=== PATIENT | male | born 1965 | race Caucasian/White ===

== ENCOUNTER → 2024-08-30 08:32 | Outpatient (REF) | payer BC, SELFPAY | LOC: PAVMRI 08:32 | PROVIDERS: ATTENDING PHYSICIAN Internal Medicine Cardiovascular Disease; FAMILY PHYSICIAN Internal Medicine | DX: I42.9 Cardiomyopathy, unspecified (principal) | CPT/HCPCS: 75561; 75565; A9585 ==